=== PATIENT | female | born 1965 | race American Indian/Alaskan Native ===

== ENCOUNTER 2019-03-17 09:40 | Outpatient (CLI) | payer BC ==
--- NOTE | 2019-03-17 13:56 | Mammography Report ---
BILATERAL DIGITAL AUGMENTED SCREENING MAMMOGRAM with CAD: 03/17/19 09:40:00 CLINICAL: Routine screening. COMPARISON:None available. She has had previous mammograms at [facility]. FINDINGS: Screening views with and without implant displacement demonstrate heterogeneously dense breasts, which may obscure small masses. No mass, architectural distortion or suspicious calcifications. Intact subpectoral implants. IMPRESSION: No mammographic evidence of malignancy. BI-RADS CATEGORY: 2 -- Benign RECOMMENDATION: Routine mammographic screening in one year. We will attempt to obtain a prior mammogram and make a comparison. COMMENT: 1. Dense breast tissue, i.e., adenosis, fibrocystic changes, etc., may obscure an underlying neoplasm. 2. Approximately 10% of cancers are not detected with mammography. 3. A negative mammography report should not delay biopsy if a clinically suspicious mass is present. COMMENT: Patient follow-up letters are generated via our [employer] application.
== END 2019-03-17 09:41 | disposition home or self-care (01) ==
LOC: SPVWC 09:40
PROVIDERS: ATTEND Obstetrics & Gynecology
DX: Z12.31 Encounter for screening mammogram for malignant neoplasm of breast (principal)
CPT/HCPCS: 77067

== ENCOUNTER 2020-04-24 11:05 | Outpatient (CLI) | payer BC ==
--- NOTE | 2020-04-24 15:08 | Mammography Report ---
DIGITAL SCREENING MAMMOGRAM WITH CAD, 04/24/2020 INDICATION: Routine screening mammography. TECHNIQUE: Digital bilateral 2D mammography was obtained in the craniocaudal and mediolateral obliq ue projections without and with implant displacement. This examination was interpreted with the benef it of Computer-Aided Detection analysis. COMPARISON: 03/17/2019 FINDINGS: Breast Density: The breasts are heterogeneously dense, which may obscure small masses. There is no evidence of dominant mass, suspicious calcifications or architectural distortion in eithe r breast. Bilateral subpectoral implants in place. IMPRESSION: No mammographic evidence of malignancy. Follow up recommendation: Routine yearly BI-RADS Category 2: Benign. A "normal" or negative report should not discourage follow up or biopsy of a clinically significant f inding. A written summary of these findings will be mailed to the patient. The patient will be entered into a mammography reporting system which will generate a reminder letter for the patient's next appointmen t at the appropriate interval. The [employer] recommends yearly mammograms starting at age 40 and continuing as l oscar as a woman is in good health. Breast MRI is recommended for women with an approximate 20-25% or greater lifetime risk of breast cancer, including women with a strong family history of breast or ova stefano cancer or who have been treated for Hodgkin's disease. Signer Name: Yuval Young MD Signed: 04/24/2020 3:04 PM Workstation Name: [id number]
== END 2020-04-24 11:06 | disposition home or self-care (01) ==
LOC: SPVWC 11:05
PROVIDERS: ATTEND Obstetrics & Gynecology
DX: Z12.31 Encounter for screening mammogram for malignant neoplasm of breast (principal)
CPT/HCPCS: 77067

== ENCOUNTER 2021-04-30 11:12 | Outpatient (CLI) | payer BC | END 2021-04-30 11:13 | disposition home or self-care (01) | LOC: SPVWC 11:12 | PROVIDERS: ATTEND Obstetrics & Gynecology | DX: Z12.31 Encounter for screening mammogram for malignant neoplasm of breast (principal); N64.89 Other specified disorders of breast | CPT/HCPCS: 77067 ==

== ENCOUNTER 2022-05-05 10:14 | Outpatient (CLI) | payer OTHER ==
--- NOTE | 2022-05-06 12:12 | Mammography Report ---
DIGITAL SCREENING MAMMOGRAM WITH CAD, 05/05/2022 CLINICAL INFORMATION / INDICATION: Routine screening mammography TECHNIQUE: Digital 2D mammography was obtained in the craniocaudal and mediolateral oblique projectio ns. This examination was interpreted with the benefit of Computer-Aided Detection analysis. COMPARISON: 04/30/2021 FINDINGS: Breast Density: The breasts are heterogeneously dense, which may obscure small masses. No dominant mass, suspicious calcifications, or architectural distortion in the right breast. Bilateral implants are again seen. In the posterior aspect of the inferior medial left breast, at 8:0 0, approximately 5 cm from the nipple, possible nodularity is more prominent than prior studies. IMPRESSION: Possible increasing nodularity on the left Follow up recommendation: Left breast ultrasound and additional mammographic views as needed BI-RADS Category 0: INCOMPLETE. Needs additional imaging evaluation and/or prior mammograms for ronnell bauman. A "normal" or negative report should not discourage follow up or biopsy of a clinically significant f inding. A written summary of these findings will be mailed to the patient. The patient will be entered into a mammography reporting system which will generate a reminder letter for the patient's next appointmen t at the appropriate interval. The [employer] recommends yearly mammograms starting at age 40 and continuing as l oscar as a woman is in good health. Breast MRI is recommended for women with an approximate 20-25% or greater lifetime risk of breast cancer, including women with a strong family history of breast or ova stefano cancer or who have been treated for Hodgkin's disease. Signer Name: Manuel Alcala MD Signed: 05/06/2022 12:04 PM Workstation Name: [id number]
== END 2022-05-05 10:15 | disposition home or self-care (01) ==
LOC: SPVWC 10:14
PROVIDERS: ATTEND Obstetrics & Gynecology
DX: Z12.31 Encounter for screening mammogram for malignant neoplasm of breast (principal)
CPT/HCPCS: 77067

== ENCOUNTER 2022-05-21 08:00 | Outpatient (CLI) | payer OTHER ==
--- NOTE | 2022-05-21 10:17 | Mammography Report ---
LEFT DIGITAL DIAGNOSTIC MAMMOGRAM WITH CAD 05/21/2022 LEFT LIMITED BREAST ULTRASOUND INDICATION: Abnormal screening mammogram. Screening recall of the left breast for new nodularity. TECHNIQUE: Digital left mammographic imaging was performed. Spot compression views were obtained. Li mited ultrasound was performed. This examination was interpreted with the benefit of Computer-Aided D etection (CAD) analysis. COMPARISON: Screening mammogram, 05/05/2022, 04/30/2021 and 04/24/2020 FINDINGS: Breast Density: The breasts are heterogeneously dense, which may obscure small masses. MAMMOGRAPHIC FINDINGS: Spot compression views demonstrate a persistent oval 8 mm density at the 8:00 position middle depth. ULTRASOUND FINDINGS: Targeted ultrasound evaluation was performed of the area of interest. Sonograp hic evaluation of the left breast at the 8:00 position 5 cm from the nipple demonstrates an oval circ umscribed minimally complicated cyst measuring 0.8 x 0.4 cm. This corresponds to the density seen on the mammogram. There is no suspicious solid mass or shadowing. IMPRESSION: 1. Left breast cyst as described representing a benign finding. Follow up recommendation: Routine yearly screening mammogram. BI-RADS Category 2: BENIGN. A "normal" or negative report should not discourage follow up or biopsy of a clinically significant f inding. A written summary of these findings will be mailed to the patient. The patient will be entered into a mammography reporting system which will generate a reminder letter for the patient's next appointmen t at the appropriate interval. According to the [employer], yearly mammograms are recommended starting at age 40 and continuing as long as a woman is in good health. Breast MRI is recommended for women with an nabor roximately 20-25% or greater lifetime risk of breast cancer, including women with a strong family his tory of breast or ovarian cancer and women who have been treated for Hodgkin's disease. Signer Name: Hafsa Leal MD Signed: 05/21/2022 10:13 AM Workstation Name: [id number]
== END 2022-05-21 08:01 | disposition home or self-care (01) ==
LOC: MAMMO 08:00
PROVIDERS: ATTEND Obstetrics & Gynecology
DX: N60.02 Solitary cyst of left breast (principal)